=== PATIENT | male | born 1945 | race Caucasian/White ===

== ENCOUNTER 2016-07-21 08:00 | Emergency (ER) | payer OTHER ==
[2016-07-21] MEDS: ETOMIDATE 2 MG/ML SOL IV ONE (08:17)
[2016-07-21] MEDS: SODIUM CHLORIDE 0.9% 500 ML SOL IV ONE (08:17)
[2016-07-21] MEDS: ROCURONIUM BROMIDE 10 MG/ML SOL IV ONE (08:17)
[2016-07-21] MEDS ORDERED: LORAZEPAM 2 MG/ML SOL ONE (08:18)
[2016-07-21 08:34] LABS: HEMATOCRIT 42 % (39-53); MEAN CORPUSCULAR HGB CONC 32.6 gm/dl (32.0-36.0); MEAN CORPUSCULAR VOLUME 85 fL (80-100)
[2016-07-21] MEDS: LORAZEPAM 2 MG/ML SOL IV ONE (08:36)
[2016-07-21 08:43] LABS: ALBUMIN 3.7 gm/dl (3.4-5.0); CALCIUM 8.6 mg/dl (8.5-10.1); EOSINOPHILS % (MANUAL) 5 % (0-9); LYMPHOCYTES % (MANUAL) 69 % (10-50)
[2016-07-21 08:44] LABS: BASOPHILS % (MANUAL) 0 % (0-3); NORMAL RBCS PRESENT
[2016-07-21 09:39] VITALS: BP 171/87; TEMP 98
[2016-07-21 09:40] VITALS: PULSE 75; RESP 26; O2SAT 91
[2016-07-21] MEDS ORDERED: ETOMIDATE 2 MG/ML SOL IV ONE (10:38)
[2016-07-21] MEDS ORDERED: ROCURONIUM BROMIDE 10 MG/ML SOL IV ONE (10:40)
== END 2016-07-21 08:44 | disposition short-term general hospital (02) | DRG 66 ==
LOC: ED 08:00
DX: I62.9 Nontraumatic intracranial hemorrhage, unspecified (principal); R40.2122 Coma scale, eyes open, to pain, at arrival to emergency department; R40.2212 Coma scale, best verbal response, none, at arrival to emergency department; R40.2332 Coma scale, best motor response, abnormal flexion, at arrival to emergency department; R29.717 NIHSS score 17
CPT/HCPCS: 36415; 80053; 85007; 85027; 85610; 99291; J2060